=== PATIENT | female | born 1975 | race Two or more races ===

== ENCOUNTER 2022-11-04 09:23 | Emergency (ER) | payer OTHER ==
[~2022-11-04] VITALS: Ht 167.6 cm; Wt 140.0 kg
[2022-11-04 09:30] VITALS: BP 154/100
[2022-11-04 10:24] LABS: HEMATOCRIT. 38.3 % (36.0-48.0); HEMOGLOBIN. 12.6 g/dL (12.0-16.0); MEAN CORPUSCULAR HEMOGLOBIN 30.8 pg (28.0-32.0); MEAN CORPUSCULAR VOLUME 93.6 fL (81.0-99.0); MEAN PLATELET VOLUME 8.5 fl (7.4-10.4); PLATELET 164 x1000/uL (130-400); RED CELL DISTRIBUTION WIDTH 17.3 % (11.6-14.6)
[2022-11-04 10:31] LABS: CHLORIDE 100 mEq/L (98-107)
[2022-11-04 10:38] LABS: ETHANOL BLOOD 290 mg/dL
[2022-11-04 10:53] LABS: PLATELET ESTIMATE NORMAL
== END 2022-11-04 12:20 | disposition home or self-care (01) ==
LOC: ER 09:23
DX: F10.129 Alcohol abuse with intoxication, unspecified (principal); R51.9 Headache, unspecified; Y90.8 Blood alcohol level of 240 mg/100 ml or more
CPT/HCPCS: 36415; 80053; 80320; 85025; 99284; G0480